=== PATIENT | female | born 1950 | race African-American/Black ===

== ENCOUNTER → 2017-03-03 | Outpatient (CLI) | payer MEDICARE ==
--- NOTE | ~2017-03-03 | US84 ---
[id number] [facility]. [facility] [address] [place], [place] [address] [id number] O MR#: [id number] Acc #: [id number] NAME: YOHANNES GRAFF : 1950 SEX: F STUDY DATE/TIME: 03/03/2017 9:33 UNIT: [facility] ROOM: STUDY DESCRIPTION: US LE Veins Complete Socrates Stdy Attending Physician: Ramin Valero M.D. Referring Physician: Ramin Valero M.D. Ordering Physician: Ramin Valero M.D. Primary Care Physician: Ursula Ferrari Aprn MEDICAL IMAGING REPORT This report is preliminary unless electronic signature is present EXAM Bilateral lower extremity venous Doppler 03/03/2017 HISTORY Bilateral leg swelling for 1 month. TECHNIQUE Venous ultrasound examination of both lower extremities was performed using grayscale, spectral Doppler and color flow Doppler imaging. FINDINGS The examination is negative. There is no evidence of deep venous thrombus from the groin to the lower calf bilaterally. Visualized greater saphenous veins are also patent. IMPRESSION Normal negative examination. No evidence of lower extremity deep venous thrombosis. Dictated by... Denton Angel M.D. THIS IS AN ELECTRONICALLY VERIFIED REPORT Denton Angel M.D. at 03/12/2017 10:39 AM TEV/to TD: 03/03/2017 19:25 JOB #: [id number] MEDICAL IMAGING REPORT Page 1 of 1 COPY
== END | disposition home or self-care (01) ==
LOC: CNIV 09:14
DX: R60.0 Localized edema (principal)
CPT/HCPCS: 93970